=== PATIENT | male | born 1965 | race Hispanic/Latino ===

== ENCOUNTER → 2018-06-12 | Outpatient (CLI) | payer OTHER ==
--- NOTE | 2018-06-13 10:57 | Diagnostic Imaging Report ---
Left knee MRI without contrast. History: Knee pain. Decreased range of motion. Pain not responding to conservative management arthritis. Comparison: None. Technique: Multiplanar multi-sequence MRI of the knee without contrast. Findings: Medial compartment: There is a complex tear involving the posterior horn and body segments of the medial meniscus with a radial component adjacent to the posterior root. This is best seen on sagittal series 4 image 25. The medial compartmental articular cartilage surfaces are thinned with regions of fraying and fissuring. There is mild underlying bone marrow edema. There are small peripheral marginal osteophytes. The medial collateral ligament complex is intact. Lateral compartment: No meniscal tear or cartilage abnormality. The LCL complex is normal. Intercondylar notch: The ACL and PCL are intact. Patellofemoral compartment: There is articular cartilage fraying and deep fissuring in the patellofemoral compartment. Extensor mechanism: The quadriceps and patellar tendons are normal. Other findings: There is a joint effusion and synovitis. There is no acute fracture, subluxation or avascular necrosis. There is soft tissue edema about the knee most pronounced anteriorly. There is a nonaggressive appearing cortically based lesion along the posterior proximal tibia. No adjacent bone marrow edema or aggressive features are seen. IMPRESSION: Complex medial meniscus tear with associated degenerative arthrosis in the medial compartment of the knee. Articular cartilage fraying and fissuring in the patellofemoral compartment. Joint effusion, synovitis and soft tissue edema about the knee. Nonaggressive appearing cortically based lesion along the posterior proximal tibia. No adjacent bone marrow edema or aggressive features are seen. Signed by: Dr. Dwaine Brock M.D. on 06/13/2018 10:54 AM
== END ==
LOC: MRI 15:15
PROVIDERS: ATTEND Family Medicine
DX: M25.562 Pain in left knee (principal)

== ENCOUNTER → 2018-11-19 | Day surgery (SDC) | payer OTHER ==
[~2018-11-19] MED LIST: ACETAMINOPHEN 1000 MG/100 ML IV ONE; BUPIVACAINE 0.5%/EPI 30 ML SDV INJ ONE; CEFAZOLIN SOD 2 GM/D5W 50ML 50 ML IV ONE; CELEBREX100 MG PO; CRESTOR10 MG PO; DEXAMETHASONE SOD PHOS INJ 4 MG/ML VIAL ONE; FENTANYL CITRATE/PF 100MCG/2 ML INJ ONE; HYDROMORPHONE 2MG/ML 2 MG/ML ML ONE; LIDOCAINE HCL 2% LOCAL INJ 5 ML SDV VIAL INJ ONE; MIDAZOLAM HCL 2 MG/2 ML VIAL ONE; ONDANSETRON HCL INJ 2MG/ML 2ML 2 MG/ML VIAL ONE; PROPOFOL IV EMULSION 10 MG/ML 20 ML VIAL ONE; SEVOFLURANE INHAL SOLN 250 ML PEN BTL ONE; ZETIA10 MG PO
--- OUTSIDE RECORDS SUMMARY | 2018-11-19 05:35 | XMS REPORT ---
[facility] Address Unknown Phone Unavailable Care Team Providers Care Business Objects Analyst Name Role Phone MEGHNA MORGAN Unavailable Unavailable Problems This patient has no known problems. Allergies, Adverse Reactions, Alerts This patient has no known allergies or adverse reactions. Medications This patient has no known medications. Results Test Description Test Time Test Comments Text Results Atomic Results Result Comments MRI KNEE LEFT WO 2018-06-13 10:51:00 [place] [address] Patient Name: FRANCINE RODRIGUEZ MR #: [id number] : 1965 Age/Sex: 53/M Req #: [id number] [facility] Physician: Ordered by: CATHY MIRANDA, MEGHNA Manzano MD Report #: [id number] Location: MRI Room/Bed: Procedure: [id number] MRI/MRI KNEE LEFT WO Exam Date: 06/12/18 Exam Time: 1620 REPORT STATUS: Signed Left knee MRI without contrast. History: Knee pain. Decreased range of motion. Pain not responding to conservative management arthritis. Comparison: None. Technique: Multiplanar multi-sequence MRI of the knee without contrast. Findings: Medial compartment: There is a complex tear involving the posterior horn and body segments of the medial meniscus with a radial component adjacent to the posterior root. This is best seen on sagittal series 4 image 25. The medial compartmental articular cartilage surfaces are thinned with regions of fraying and fissuring. There is mild underlying bone marrow edema. There are small peripheral marginal osteophytes. The medial collateral ligament complex is intact. Lateral compartment: No meniscal tear or cartilage abnormality. The LCL complex is normal. Intercondylar notch: The ACL and PCL are intact. Patellofemoral compartment: There is articular cartilage fraying and deep fissuring in the patellofemoral compartment. Extensor mechanism: The quadriceps and patellar tendons are normal. Other findings: There is a joint effusion and synovitis. There is no acute fracture, subluxation or avascular necrosis. There is soft tissue edema about the knee most pronounced anteriorly. There is a nonaggressive appearing cortically based lesion along the posterior proximal tibia. No adjacent bone marrow edema or aggressive features are seen. IMPRESSION: Complex medial meniscus tear with associated degenerative arthrosis in the medial compartment of the knee. Articular cartilage fraying and fissuring in the patellofemoral compartment. Joint effusion, synovitis and soft tissue edema about the knee. Nonaggressive appearing cortically based lesion along the posterior proximal tibia. No adjacent bone marrow edema or aggressive features are seen. Signed by: Dr. Dwaine Brock M.D. on 06/13/2018 10:54 AM Dictated By: DWAINE BROCK MD, MD [id number] Transcribed By: NATIVIDAD on 06/13/18 1059 COPY TO: MEGHNA MORGAN
[2018-11-19 11:00] VITALS: BP 131/90
--- NOTE | 2018-11-20 17:58 | Operative Report ---
DATE OF PROCEDURE: 11/19/2018 SURGEON: Slim Tello MD PREOPERATIVE DIAGNOSES: Left knee medial meniscus tear, left knee degenerative joint disease of the knee. POSTOPERATIVE DIAGNOSES: Left knee medial meniscus tear, left knee lateral meniscus tear, left knee degenerative joint disease of the knee. OPERATION AND PROCEDURES PERFORMED: The patient underwent a left knee examination under anesthesia, left knee arthroscopy, left knee partial meniscectomy, left knee partial lateral meniscectomy, left knee chondroplasty of the patella, the trochlea, the medial femoral condyle, the medial tibial plateau, the lateral femoral condyle, and lateral tibial plateau. BUSINESS RISK ANALYST: Graciela Tucker. ANESTHESIA: General endotracheal intubation anesthesia. IV FLUIDS: Per anesthesia record. BRIEF DESCRIPTION OF THE PATIENT'S OPERATIVE PROCEDURE: The patient was taken to the operating room and placed in supine position. Following induction of general as well as the correct patient, the patient's left lower extremity was examined under anesthesia. It was found to have a mild effusion within the knee joint, but otherwise ligamentously stable knee. The patient's lower extremity was prepped and draped in standard surgical fashion. A two port technique was used to provide this patient arthroscopic evaluation of the knee joint. Examination of suprapatellar pouch, medial and lateral gutters found no evidence of loose bodies. 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 Scope was advanced to the medial compartment. Medical compartment demonstrated a torn posterior horn of the medial meniscus. There was also chondromalacia in articulating surfaces. A combination of biting forceps and motorized shaver was used to resect the torn portion of meniscus. Chondroplasties of the medial femoral condyle and medial tibial plateau performed at this time. Scope was advanced to the intercondylar notch. The anterior cruciate ligament was intact. Scope was advanced to lateral compartment and chondromalacia was encountered in the lateral compartment. There was also a tear of the posterior horn of the lateral meniscus. A combination of biting forceps and motorized shaver was used to resect the torn portion of meniscus. Chondroplasty of the lateral femoral condyle, lateral tibial plateau were performed at this time. Scope was then advanced to the suprapatellar pouch. Chondroplasty of the patella and trochlea were performed. The knee was deflated with sterile normal saline. Each of the portal sites were closed using 4-0 nylon suture. The portal sites as well as the knee itself has been injected with 0.5% Marcaine with epinephrine. Sterile dressings were applied and the patient was awakened, taken to postanesthesia care unit in stable condition. MD HALIMA Bond/HEDY /[id number]
== END | disposition home or self-care (01) ==
LOC: OR 05:16
PROVIDERS: ATTEND Specialist
DX: S83.232A Complex tear of medial meniscus, current injury, left knee, initial encounter (principal); S83.282A Other tear of lateral meniscus, current injury, left knee, initial encounter; M17.12 Unilateral primary osteoarthritis, left knee; M22.42 Chondromalacia patellae, left knee; E78.00 Pure hypercholesterolemia, unspecified; X58.XXXA Exposure to other specified factors, initial encounter; Z68.31 Body mass index [BMI] 31.0-31.9, adult
CPT/HCPCS: 29880; 93005; J0131; J0690; J1100; J1170; J2001; J2250; J2405; J2704

== ENCOUNTER 2018-12-12 13:57 | Outpatient (RCR) | payer OTHER ==
[~2018-12-12 13:57] MED LIST changes: -ACETAMINOPHEN 1000 MG/100 ML IV ONE; -BUPIVACAINE 0.5%/EPI 30 ML SDV INJ ONE; -CEFAZOLIN SOD 2 GM/D5W 50ML 50 ML IV ONE; -DEXAMETHASONE SOD PHOS INJ 4 MG/ML VIAL ONE; -FENTANYL CITRATE/PF 100MCG/2 ML INJ ONE; -HYDROMORPHONE 2MG/ML 2 MG/ML ML ONE; -LIDOCAINE HCL 2% LOCAL INJ 5 ML SDV VIAL INJ ONE; -MIDAZOLAM HCL 2 MG/2 ML VIAL ONE; -ONDANSETRON HCL INJ 2MG/ML 2ML 2 MG/ML VIAL ONE; -PROPOFOL IV EMULSION 10 MG/ML 20 ML VIAL ONE; -SEVOFLURANE INHAL SOLN 250 ML PEN BTL ONE
== END 2018-12-14 ==
LOC: PT 13:57
PROVIDERS: ATTEND Specialist
DX: M17.12 Unilateral primary osteoarthritis, left knee (principal); M25.562 Pain in left knee; R26.2 Difficulty in walking, not elsewhere classified; M62.81 Muscle weakness (generalized)

== ENCOUNTER 2018-12-24 15:00 | Outpatient (RCR) | payer OTHER | END 2019-01-14 | LOC: PT 15:00 | PROVIDERS: ATTEND Specialist | DX: M17.12 Unilateral primary osteoarthritis, left knee (principal); M25.562 Pain in left knee; M25.662 Stiffness of left knee, not elsewhere classified; M62.81 Muscle weakness (generalized); R26.2 Difficulty in walking, not elsewhere classified ==